=== PATIENT | female | born 1985 ===

== ENCOUNTER 2017-08-25 15:17 | Emergency (ER) | payer OTHER ==
[2017-08-25 15:18] VITALS: BMI 36.5
[2017-08-25] MEDS ORDERED: Sodium Chloride 0.9% 1,000 ML IV STA (15:35)
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
[2017-08-25 16:14] LABS: BASO % 0.3 % (0.0-2.0); EOS # 0.2 K/uL (0.0-0.7); EOS % 2.1 % (0.0-4.0); HEMOGLOBIN 10.5 g/dL (11.0-16.0); LYMPH # 1.4 K/uL (1.0-4.3); LYMPH % 18.4 % (20.0-40.0); MEAN CELL VOLUME 73.9 fL (81.0-99.0); MEAN CORPUSCULAR HEMOGLOBIN 23.7 pg (27.0-31.0); MEAN PLATELET VOLUME 7.3 fL (7.2-11.7); MONO # 0.5 K/uL (0.0-0.8); MONO % 6.2 % (0.0-10.0); NEUT # 5.6 K/uL (1.8-7.0); RBC 4.43 Mil/uL (3.80-5.20); RED CELL DISTRIBUTION WIDTH 15.3 % (11.5-14.5); WHITE BLOOD COUNT 7.7 K/uL (4.8-10.8)
[2017-08-25 16:28] LABS: ALB/GLOB RATIO 1.3 (1.0-2.1); ALBUMIN 4.2 g/dL (3.5-5.0); ALT/SGPT 31 U/L (9-52); AST/SGOT 25 U/L (14-36); BLOOD UREA NITROGEN 11 mg/dL (7-17); CALCIUM 9.3 mg/dl (8.6-10.4); GFR AFRICAN-AMERICAN > 60; GFR NON-AFRICAN AMERICAN > 60; HCG,QUALITATIVE URINE NEGATIVE (NEGATIVE)
[2017-08-25 16:36] LABS: SQUAMOUS EPITHIAL 1 /hpf (0-5); URINE BILIRUBIN NEGATIVE (NEGATIVE); URINE BLOOD NEGATIVE (NEGATIVE); URINE CLARITY CLEAR (Clear); URINE COLOR YELLOW (YELLOW); URINE GLUCOSE (UA) NEGATIVE (Normal)
[2017-08-25 16:37] LABS: PH,URINE 7.5 (5.0-8.0); URINE LEUKOCYTE ESTERASE NEGATIVE Leu/uL (Negative); URINE NITRATE NEGATIVE (NEGATIVE); URINE PROTEIN NEGATIVE (NEGATIVE); URINE UROBILINOGEN 0.2 mg/dL (0.2-1.0)
[2017-08-25] MEDS ORDERED: Morphine 4 MG/ML VIAL ONE (18:26)
[2017-08-25] MEDS ORDERED: Iohexol 300 100 ML IJ ONE (18:34)
[2017-08-25 19:39] VITALS: TEMP 98.2
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
[2017-08-25 21:29] VITALS: BP 123/86; PULSE 90; RESP 20; O2SAT 95
--- NOTE | 2017-08-26 19:24 | CARD ---
APPROVED REPORT EKG Measurement Heart [id number] <Conclusion> Normal sinus rhythm Normal ECG
== END 2017-08-25 21:29 | disposition home or self-care (01) ==
LOC: C.ER 15:17
DX: S33.5XXA Sprain of ligaments of lumbar spine, initial encounter (principal); V49.50XA Passenger injured in collision with unspecified motor vehicles in traffic accident, initial encounter
CPT/HCPCS: 74177; 80053; 81001; 84703; 85025; 93005; 96361; 96374; 99285; J2270; J7040; Q9967